=== PATIENT | female | born 1970 | race Caucasian/White ===

== ENCOUNTER 2018-07-07 15:59 | Emergency (ER) | payer OTHER ==
--- NOTE | 2018-07-07 16:20 | PDOC ---
History of Present Illness - General Chief Complaint: Injury Stated Complaint: FALL/HEAD INJURY Time Seen by Provider: 07/07/18 16:04 - History of Present Illness Initial Comments: 07/07/18 16:14 48 year old woman with past medical history of tonic clonic seizures on keppra who presents after having a witnessed seizure and hitting her head approx 1 hr ago. The patient reports that her brother saw her shaking, but she denies urinating on herself or biting her tongue. She went to [facility] ER and was waiting there for approx 1 hr so she called EMS to bring her here. En route pts blood sugar was 166 w/ stable vitals. Pt denies shortness of breath, chest pain , abdominal pain, extremity pain. She reports adherence to seizure medications. Reports that her last seizure was 2 days ago and that she has seizures every month since she was 8 years old. PMHX: as in HPI PSHX: Meds: dilantin, keppra Allergies: none Tob: none Etoh: Rec drugs: none PCP: Annette Past History - Past Medical History Allergies/Adverse Reactions: Allergies Allergy/AdvReac Type Severity Reaction Status Date / Time No Known Allergies Allergy Verified 06/20/15 08:20 Home Medications: Ambulatory Orders Levetiracetam [Keppra] 500 mg PO BID #60 tablet 06/19/15 Phenytoin Na Extended [Dilantin -] 100 mg PO TID #90 capsule 06/19/15 Seizures: Yes - Immunization History Immunization Up to Date: Yes - Suicide/Smoking/Psychosocial Hx Smoking History: Unknown if ever smoked Hx Alcohol Use: No Drug/Substance Use Hx: No Substance Use Type: None *Physical Exam - Physical Exam Comments: 07/07/18 16:20 GENERAL: Awake, alert, and fully oriented, in no acute distress HEAD: L occipital hematoma approx 3cm in diameter EYES: PERRLA, EOMI, sclera anicteric, conjunctiva clear ENT: oropharynx clear without exudates. Moist mucosa NECK: Normal ROM, supple, no lymphadenopathy, JVD, or masses LUNGS: No distress, speaks full sentences, clear to auscultation bilaterally HEART: Regular rate and rhythm, normal S1 and S2, no murmurs, rubs or gallops, peripheral pulses normal and equal bilaterally. ABDOMEN: Soft, nontender, normoactive bowel sounds. No guarding, no rebound. No masses EXTREMITIES : Normal inspection, Normal range of motion, no edema. No clubbing or cyanosis. NEUROLOGICAL: Normal speech, normal gait, no focal sensorimotor deficits SKIN: Warm, Dry, normal turgor, no rashes or lesions noted ED Treatment Course - LABORATORY CBC & Chemistry Diagram: 07/07/18 16:48 07/07/18 16:48 - RADIOLOGY Radiology Studies Ordered: Category Date Time Status HEAD CT WITHOUT CONTRAST [CT] Stat CT Scan 07/07/18 16:11 Ordered CXRPORT [CHEST X-RAY PORTABLE*] [RAD] Stat Radiology 07/07/18 16:11 Ordered Medical Decision Making - Medical Decision Making 07/07/18 16:22 48 year old woman with past medical history of tonic clonic seizures on keppra who presents after having a witnessed seizure and hitting her head approx 1 hr ago. The patient reports that her brother saw her shaking, but she denies urinating on herself or biting her tongue. DDX including but not limited to: subtherapeutic keppra vs substance vs underlying infection W/U: - head CT - cbc, cmp - levetiracetam level ED Course: Pt with stable vitals. C spine cleared by [facility] criteria 07/07/18 16:09 Pt's PCP was contacted. 07/07/18 18:14 Pt reassessed stable. desires to go home. Pt given Keppra and Dilantin. Pt. stable for discharge. Given follow up instructions and strict return precautions. Patient advised to see PCP within 1 week as she is likely subtherapeutic on antiseizure medications. Patient expressed understanding and agreed to plan. *DC/Admit/Observation/Transfer Diagnosis at time of Disposition: Seizure - Discharge Dispostion Disposition: HOME Condition at time of disposition: Stable Decision to Admit order: No - Referrals Referrals: German Ortega MD [Staff Physician] - - Patient Instructions Printed Discharge Instructions: Seizure Disorder -- Adult Additional Instructions: You were seen in the ED for complaints of seizure. In the ED you were evaluated with labwork and imaging. Your results were unremarkable. There does not appear to be an acute need for immediate hospitalization. You are advised to follow up with your primary care physician within 1 week. You were given a referral to neurology. It is advised that you follow up with your physicians for appropriate management of your seizures. Return to the ED immediately if you experience recurrent seizures, loss of consciousness, headaches, nausea, vomiting, chest pain or shortness of breath. - Post Discharge Activity
[2018-07-07 16:26] VITALS: TEMP 98.1; BMI 29.7
--- NOTE | 2018-07-07 16:36 | PDOC ---
Attending Attestation - Resident Resident Name: Etta Mars - ED Attending Attestation I have performed the following: I have examined & evaluated the patient, The case was reviewed & discussed with the resident, I agree w/resident's findings & plan, Exceptions are as noted - HPI HPI: 07/07/18 16:34 48 yo female with a long h/o epilepsy had a witnessed tonic clonic seizure -she states her last seizure was Sunday and she has frequent szs -she is alert and conversant - Physicial Exam PE: 07/07/18 17:12 Alert and conversant 48-year-old female with no gross focal neural deficits head there is a left parietal scalp abrasion eyes vandana eomi neck no cervical vertebral tenderness lungs cta b.l cvs [id number] abd soft,nontender extremites no deformities skin warn and dry neuro axox3 - Medical Decision Making 07/07/18 17:[address] head,wound care,neuro referral
[2018-07-07 16:54] LABS: BASO % 0.7 % (0-2.0); HEMATOCRIT 40.4 % (32.4-45.2); HEMOGLOBIN 13.8 GM/dL (10.7-15.3); LYMPH % 14.2 % (8-40); MCH 31.1 pg (25.7-33.7); MCHC 34.2 g/dl (32.0-36.0); MEAN CELL VOLUME 90.7 fl (80-96); MEAN PLT VOLUME 10.3 fl (7.5-11.1); MONO % 5.8 % (3.8-10.2); NEUT % 78.3 % (42.8-82.8); PLATELET COUNT 201 K/MM3 (134-434); RBC 4.45 M/mm3 (3.60-5.2); RDW 13.3 % (11.6-15.6)
[2018-07-07 17:22] LABS: ALBUMIN 3.6 g/dl (3.4-5.0); ANION GAP 10 MMOL/L (8-16); BILIRUBIN,TOTAL 0.4 mg/dL (0.2-1.0); BLOOD UREA NITROGEN 6 mg/dL (7-18); CALCIUM 9.2 mg/dL (8.5-10.1); CHLORIDE 104 mmol/L (98-107); CO2 23 mmol/L (21-32); CREATININE 0.5 mg/dL (0.55-1.02); GLUCOSE,RANDOM 109 mg/dL (74-106); SGPT/ALT 37 U/L (12-78); SODIUM 137 mmol/L (136-145); TOT PROT 7.4 g/dl (6.4-8.2)
[2018-07-07 17:23] LABS: ALK PHOS 171 U/L (45-117)
[2018-07-07 17:28] LABS: POTASSIUM 4.8 mmol/L (3.5-5.1); SGOT/AST 31 U/L (15-37)
[2018-07-07 17:39] LABS: PLATELET ESTIMATE ADEQUATE
[2018-07-07] MEDS ORDERED: levETIRAcetam 500 MG TABLET (FP) PO ONE ×2 (18:10→18:33)
[2018-07-07] MEDS ORDERED: PHENYTOIN NA EXTENDED 100 MG CAPSULE (FP) PO ONE (18:10)
[2018-07-07] MEDS ORDERED: PHENYTOIN NA EXTENDED 100 MG CAPSULE (FP) ONE (18:33)
[2018-07-07 18:43] VITALS: BP 107/76; PULSE 92
== END 2018-07-07 18:44 | disposition home or self-care (01) ==
LOC: JER 15:59
DX: G40.909 Epilepsy, unspecified, not intractable, without status epilepticus (principal); S09.8XXA Other specified injuries of head, initial encounter; S00.01XA Abrasion of scalp, initial encounter; W19.XXXA Unspecified fall, initial encounter; Y93.9 Activity, unspecified; Y92.89 Other specified places as the place of occurrence of the external cause; Y99.8 Other external cause status
CPT/HCPCS: 36415; 70450-TC; 71045-TC-FY; 80053; 85025; 99282-25

== ENCOUNTER 2019-07-02 13:25 | Emergency (ER) | payer OTHER ==
--- NOTE | 2019-07-02 13:38 | PDOC ---
Rapid Medical Evaluation Chief Complaint: Edema Time Seen by Provider: 07/02/19 13:28 Medical Evaluation: Allergies Allergy/AdvReac Type Severity Reaction Status Date / Time No Known Allergies Allergy Verified 07/02/19 13:32 Vital Signs Temp Pulse Resp BP Pulse Ox 98.1 F 87 19 114/71 96 07/02/19 13:30 07/02/19 13:30 07/02/19 13:30 07/02/19 13:30 07/02/19 13:30 07/02/19 13:34 I have performed a brief in-person evaluation of this patient. The patient presents with a chief complaint of: h/o asthma and epilepsy present with complains of 2 weeks h/o worsening LE and ankles swelling and now with redness around ankles. pt report went to [facility] 5 days ago and was told to eat ice and drink water for her symptoms Pertinent physical exam findings: moderate b/l peripheral pitting edema with increased erythema to dorsum of b/l ankles I have ordered the following: cbc, cmp, BNP, fingerstick. b/l duplex The patient will proceed to the ED for further evaluation. Discharge Disposition - Diagnosis Peripheral edema, Ankle cellulitis - Discharge Dispostion Condition at time of disposition: Stable - Referrals Referrals: Michael Bryant [Primary Care Provider] - - Patient Instructions - Post Discharge Activity
[2019-07-02 13:44] VITALS: PULSE 87; BMI 31.2
[2019-07-02] MEDS ORDERED: IBUPROFEN 600 MG TABLET (FP) PO ONE ×2 (15:46→16:04)
--- NOTE | 2019-07-02 15:57 | PDOC ---
Documentation entered by Xu Deluca SCRIBE, acting as scribe for Bethany Justin MD. Bethany Justin MD: This documentation has been prepared by the Yosi umana Daniel, SCRIBE, under my direction and personally reviewed by me in its entirety. I confirm that the documentation accurately reflects all work, treatment, procedures, and medical decision making performed by me. History of Present Illness - General Chief Complaint: Edema Stated Complaint: Edema Time Seen by Provider: 07/02/19 13:28 History Source: Patient Exam Limitations: No Limitations - History of Present Illness Initial Comments: 07/02/19 15:15 The patient is a 49 year old female with a past medical history of seizures here today for evaluation of bilateral foot pain. The patient reports that she has had 2 weeks of foot pain and denies any falls or trauma. She also endorses lower extremity edema. Patient denies headache, lightheadedness. Denies fever, chills. Denies chest pain, shortness of breath. Denies nausea, vomiting, diarrhea, abdominal pain. Allergies: NKA Social history: Denies alcohol, tobacco, and illicit drug use. Family history: seizures (aunt) PCP: Michael Bryant Past History - Past Medical History Allergies/Adverse Reactions: Allergies Allergy/AdvReac Type Severity Reaction Status Date / Time No Known Allergies Allergy Verified 07/02/19 13:32 Home Medications: Ambulatory Orders Levetiracetam [Keppra] 500 mg PO BID #60 tablet 06/19/15 Phenytoin Na Extended [Dilantin -] 100 mg PO TID #90 capsule 06/19/15 Asthma: Yes COPD: No Seizures: Yes - Immunization History Immunization Up to Date: Yes - Suicide/Smoking/Psychosocial Hx Smoking History: Current every day smoker Have you smoked in the past 12 months: No Number of Cigarettes Smoked Daily: 1 Information on smoking cessation initiated: No Hx Alcohol Use: No Drug/Substance Use Hx: No Substance Use Type: None Review of Systems - Review of Systems Able to Perform ROS?: Yes Comments:: 07/02/19 15:15 GENERAL/CONSTITUTIONAL: No fever or chills. No weakness. HEAD, EYES, EARS, NOSE AND THROAT: No change in vision. No ear pain or discharge. No sore throat. CARDIOVASCULAR: No chest pain or shortness of breath. RESPIRATORY: No cough, wheezing, or hemoptysis. GASTROINTESTINAL: No nausea, vomiting, diarrhea or constipation. GENITOURINARY: No dysuria, frequency, or change in urination. MUSCULOSKELETAL: +bilateral foot pain. +bilateral lower extremity edema. No neck or back pain. SKIN: No rash NEUROLOGIC: No headache, vertigo, loss of consciousness, or change in strength/ sensation. ENDOCRINE: No increased thirst. No abnormal weight change. HEMATOLOGIC/LYMPHATIC: No anemia, easy bleeding, or history of blood clots. ALLERGIC/IMMUNOLOGIC: No hives or skin allergy. *Physical Exam - Vital Signs Last Vital Signs Temp Pulse Resp BP Pulse Ox 98.1 F 87 19 114/71 96 07/02/19 13:30 07/02/19 13:30 07/02/19 13:30 07/02/19 13:30 07/02/19 13:30 - Physical Exam Comments: 07/02/19 15:16 GENERAL: The patient is in no acute distress. HEAD: Normal with no signs of trauma. EYES: PERRLA, EOMI, sclera anicteric, conjunctiva clear. ENT: Ears normal, nares patent, oropharynx clear without exudates. Moist mucous membranes. NECK: Normal range of motion, supple without lymphadenopathy, JVD, or masses. LUNGS: Breath sounds equal, clear to auscultation bilaterally. No wheezes, and no crackles. HEART:Regular rate and rhythm, normal S1 and S2 without murmur, rub or gallop. ABDOMEN: Soft, nontender, normoactive bowel sounds. No guarding, no rebound. No masses palpable. EXTREMITIES: +bilateral lower extremity edema and tenderness to palpation of feet. Capillary refill less than 2 seconds. +feet are warm. +red spot on top of left foot. Normal range of motion. No clubbing or cyanosis. NEUROLOGICAL: Cranial nerves II through XII grossly intact. Normal speech. No focal neurological deficits. MUSCULOSKELETAL: Back non-tender to palpation, no CVA tenderness SKIN: Warm, Dry, normal turgor, no rashes or lesions noted. ED Treatment Course - RADIOLOGY Radiology Studies Ordered: Category Date Time Status FOOT-LEFT [RAD] Stat Radiology 07/02/19 15:10 Ordered FOOT-RIGHT [RAD] Stat Radiology 07/02/19 15:10 Ordered Medical Decision Making - Medical Decision Making 07/02/19 15:42 49 yo F presenting to the ER with a complaint of bilateral lower extremity edema and foot pain Pt has had these symptoms for the past 2 weeks No direct trauma No fevers or chills No arthropod bites No erythema Pt has been walking around a lot looking for an apartment (because she lost hers ) Pain is on the plantar surface of both feet She has not taken any medication for this DD: Plantar faciitis, occult fracture, most likely dependent edema, possible DVT 07/02/19 15:46 Will do: Labs Duplex Xray Chrissie Re Assess Anticipate D/c *DC/Admit/Observation/Transfer Diagnosis at time of Disposition: Peripheral edema, Ankle cellulitis - Discharge Dispostion Condition at time of disposition: Stable - Referrals Referrals: Michael Bryant [Primary Care Provider] - - Patient Instructions - Post Discharge Activity
--- NOTE | 2019-07-02 16:57 | PDOC ---
*Physical Exam - Vital Signs Last Vital Signs Temp Pulse Resp BP Pulse Ox 98.1 F 87 19 114/71 96 07/02/19 13:30 07/02/19 13:30 07/02/19 13:30 07/02/19 13:30 07/02/19 13:30 - Physical Exam Extremity: positive: Pedal Edema (bilateral lower extremity to ankle), Swelling. negative: Calf Tenderness ED Treatment Course - LABORATORY CBC & Chemistry Diagram: 07/02/19 16:38 07/02/19 16:38 - Medications Given in the ED: ED Medications Discontinued Medications Generic Name Dose Route Start Last Admin Trade Name Marilu PRN Reason Stop Dose Admin Ibuprofen 600 mg 07/02/19 15:46 07/02/19 16:06 Motrin - PO 07/02/19 15:47 600 mg ONCE ONE Administration Medical Decision Making - Medical Decision Making 07/02/19 17:39 49yo F with PMH of epilepsy presenting to ED with bilateral foot pain x2w and pedal edema. Pt says she notices that swelling is more pronounced at the end of the day v. the beginning. No chest pain, sob, fevers, chills. non tender feet, only painful when walking. given motrin. labs wnl. pending us and xray. 07/02/19 19:54 xray does not show any acute findings doppler study negative for dvt. patient is feeling better. will dc home. will give podiatry f/u and rx for Keflex. Given return precautions. *DC/Admit/Observation/Transfer Diagnosis at time of Disposition: Peripheral edema, Ankle cellulitis - Discharge Dispostion Disposition: HOME Condition at time of disposition: Good Decision to Admit order: No - Prescriptions Prescriptions: Cephalexin Monohydrate [Keflex -] 500 mg PO Q6H #28 capsule - Referrals Referrals: Michael Bryant [Primary Care Provider] - [place] DPM [Staff Physician] - - Patient Instructions Printed Discharge Instructions: DI for Cellulitis -- Adult, DI for Peripheral Edema -- Bilateral Additional Instructions: You were seen in the emergency room today for swelling and pain. The ultrasound , xrays and blood work are all normal. You may have an infection of the skin, a prescription for Keflex was sent to your pharmacy. Take as directed. Keep your legs elevated when you are resting and wear compression stockings. The stockings can be found at any drug store. Wear comfortable shoes. You can take Tylenol or Motrin for the pain as needed. Please make an appointment with Dr. Bryant this week or early next week regarding the swelling. Come back to the emergency room for worsening redness, fever, sores in the feet , shortness of breath, chest pain or if any new concerning symptom develops. Thank you - Post Discharge Activity
[2019-07-02 16:58] LABS: EOS % 3.9 % (0-4.5); HEMATOCRIT 40.1 % (32.4-45.2); HEMOGLOBIN 13.6 GM/dL (10.7-15.3); LYMPH % 39.6 % (8-40); MCH 31.4 pg (25.7-33.7); MCHC 33.9 g/dl (32.0-36.0); MEAN CELL VOLUME 92.4 fl (80-96); MEAN PLT VOLUME 10.1 fl (7.5-11.1); MONO % 8.7 % (3.8-10.2); NEUT % 46.8 % (42.8-82.8); PLATELET COUNT 223 K/MM3 (134-434); RBC 4.34 M/mm3 (3.60-5.2); RDW 13.4 % (11.6-15.6); WHITE BLOOD COUNT 9.7 K/mm3 (4.0-10.0)
[2019-07-02 17:29] LABS: ALBUMIN 3.8 g/dl (3.4-5.0); BILIRUBIN,TOTAL 0.3 mg/dL (0.2-1); BLOOD UREA NITROGEN 6.1 mg/dL (7-18); CALCIUM 9.5 mg/dL (8.5-10.1); CREATININE 0.6 mg/dL (0.55-1.3); TOT PROT 7.5 g/dl (6.4-8.2)
[2019-07-02 20:13] VITALS: BP 117/64; TEMP 97.8
== END 2019-07-02 20:14 | disposition home or self-care (01) ==
LOC: JER 13:25
DX: L03.116 Cellulitis of left lower limb (principal); L03.115 Cellulitis of right lower limb; R60.0 Localized edema
CPT/HCPCS: 36415; 73630-TC-LT; 73630-TC-RT-FY; 80053; 82962; 83880; 85025; 93970-TC; 99283-25

== ENCOUNTER 2020-07-14 15:40 | Emergency (ER) | payer OTHER ==
[2020-07-14 16:14] VITALS: BP 109/64; PULSE 99; TEMP 98.6; BMI 29.0
--- NOTE | 2020-07-14 17:03 | PDOC ---
History of Present Illness - General Chief Complaint: Seizure Stated Complaint: SEIZURE Time Seen by Provider: 07/14/20 16:21 History Source: Patient Exam Limitations: No Limitations - History of Present Illness Initial Comments: 07/14/20 17:02 50y F with PMH of seizures presenting to the ER via EMS for witnessed seizure. Pt states she was on a walk with her friends when she had it. She states she usually gets seizures 3 days before her period starts. She takes Keppra 750mg, phenytoin and Risperdal for seizures and says she has been taking her medications as prescribed. She does not know if she fell or not but says her friends told her she fell. Per pt, she was told her seizure was brief and resolved without intervention. Denies headache, neck pain, changes in vision, n umbness/tingling, weakness, chest pain, sob, fevers/chills, back pain, abdominal pain, n/v/d, urinary symptoms. Denies smoking, alcohol or drug use. PMD: Annette Neuro: PMH: see hpi Meds: keppra, risperidone, phenytoin Allergies: nkda Social: denies Past History - Medical History Allergies/Adverse Reactions: Allergies Allergy/AdvReac Type Severity Reaction Status Date / Time No Known Allergies Allergy Verified 07/02/19 13:32 Home Medications: Ambulatory Orders Levetiracetam [Keppra] 500 mg PO BID #60 tablet 06/19/15 Phenytoin Na Extended [Dilantin -] 100 mg PO TID #90 capsule 06/19/15 Asthma: Yes COPD: No Seizures: Yes - Reproductive History Is Patient Now?: No - Immunization History Immunization Up to Date: Yes - Psycho-Social/Smoking History Smoking History: Never smoked Have you smoked in the past 12 months: No Number of Cigarettes Smoked Daily: 1 Information on smoking cessation initiated: No - Substance Abuse Hx (Audit-C & DAST Scrn) How often the patient has a drink containing alcohol: Never Score: In Men: 4 or > Positive; In Women: 3 or > Positive: 0 Screen Result (Pos requires Nsg. Audit-10AR): Negative In the last yr the pt used illegal drug/Rx for NonMed reason: No Score: Yes response is considered Positive: 0 Screen Result (Positive result requires Nsg. DAST-10): Negative *Physical Exam - Vital Signs Last Vital Signs Temp Pulse Resp BP Pulse Ox 98.6 F 99 H 20 109/64 100 07/14/20 16:05 07/14/20 16:05 07/14/20 16:05 07/14/20 16:05 07/14/20 16:05 - Physical Exam General Appearance: Yes: Nourished, Appropriately Dressed. No: Apparent Distress HEENT: positive: EOMI, DELICIA, Normal ENT Inspection, Other (no tongue lacerations) Neck: positive: Trachea midline, Supple Respiratory/Chest: positive: Lungs Clear, Normal Breath Sounds. negative: Crackles, Rales, Rhonchi, Stridor, Wheezing Cardiovascular: positive: Regular Rhythm, Regular Rate, S1, S2. negative: Edema, JVD, Murmur Vascular Pulses: Dorsalis-Pedis (R): 2+, Doralis-Pedis (L): 2+ Gastrointestinal/Abdominal: positive: Normal Bowel Sounds, Soft. negative: Tender Musculoskeletal: positive: Normal Inspection. negative: CVA Tenderness, Decreased Range of Motion Extremity: positive: Normal Capillary Refill, Normal Inspection. negative: Swelling, Calf Tenderness, Erythema Integumentary: positive: Normal Color, Dry, Warm Neurologic: positive: administrative associate II-XII NML intact, Fully Oriented, Alert, Normal Mood/Affect, Normal Response, Motor Strength 5/5 Medical Decision Making - Medical Decision Making 07/14/20 18:36 50y F with pmh of seizures presenting to the ER for break through seizures. seizure was witnessed by her friends, was brief and resolved without intervention. It is typical for patient to get seizures 3 days before her period starts per pt. No complaints at this time. PE: neurologically intact, small abrasion to L elbow otherwise no external signs of trauma. will check glucose, head and cspine ct due to fall and will check urine, upreg -observe pt brought medications with her; stated she took her AM and noon doses, will take her evening doses. no seizures while in ER. bgm wnl. ua negative for infection, not . pending CT but likely will dc home with neurology f/u as pt states she does not see a neurologist. will give referral. hemodynamically stable, neurologically intact, will discharge home. return precautions provided. CT read pending sign out to Dr. Hseih Discharge - Discharge Information Problems reviewed: Yes Clinical Impression/Diagnosis: Seizure Condition: Good Disposition: HOME - Admission No - Follow up/Referral Referrals: Michael Bryant [Primary Care Provider] - Channing Bernabe MD [Staff Physician] - - Patient Discharge Instructions Patient Printed Discharge Instructions: DI for Seizure Disorder -- Adult Additional Instructions: You were seen in the ER today for a seizure episode. Due to the fall we got a CT scan of your head and your neck which is normal. Continue taking your medications as directed. Stay well hydrated. I recommend following up with a neurologist. The referral is provided below. Come back to the ER if you have worsening headaches, changes in vision, you pass out, or if any new or concerning symptom develops. Thank you - Post Discharge Activity
--- NOTE | 2020-07-14 17:53 | PDOC ---
Documentation entered by John Johnson SCRIBE, acting as scribe for Emma Nicholson DO. Emma Nicholson DO: This documentation has been prepared by the Alex umana Angel, SCRIBE, under my direction and personally reviewed by me in its entirety. I confirm that the documentation accurately reflects all work, treatment, procedures, and medical decision making performed by me. Attending Attestation - Resident Resident Name: KarimeBillie - ED Attending Attestation I have performed the following: I have examined & evaluated the patient, The case was reviewed & discussed with the resident, I agree w/resident's findings & plan, Exceptions are as noted - HPI HPI: 07/14/20 18:21 The patient is a 50 year old female with a significant past medical history of epilepsy who presents to the ED BIBA s/p witnessed seizure. The patient states she was on a walk with her friends when the seizure happened. She was told by her friends that she did fall. The patient is compliant with all her prescribed medications (Keppra 750mg, Phenytoin and Risperdal). The patient notes having one seizure a month which is managed by at [facility]. The patient denies headaches, neck pain, N/V/D, SOB, fever/chills, changes in vision or any weakness. - Physicial Exam PE: 07/14/20 17:49 Gen: aaox3, nad heent: EOMI, PERRL, MMM neck: supple, no midline ttp, heart: +s1s2 reg lungs: cta b/l abd: soft, nt/nd +bs ext: no c/c/e neuro: cn ii-xii grossly intact, no focal deficits, muscle strength and sensation intact - Medical Decision Making 07/14/20 17:52 a/p: 50yo female with a witness seizure today -pt is compliant with epilepsy meds -states she has 1 seizure a month associated with her menstrual cycle -pt currently at baseline and will take her own nighttime meds at 6p -blood glu 100 -ua pending -head ct and ct c spine pending -will monitor and reassess 07/14/20 19:[address] c spine neg other than thyroid nodule, will need outpt follow up pt has been seizure free while in the ER Discharge - Discharge Information Problems reviewed: Yes Clinical Impression/Diagnosis: Seizure, Thyroid nodule Condition: Stable Disposition: HOME - Admission No - Follow up/Referral Referrals: Channing Bernabe MD [Staff Physician] - Michael Bryant [Primary Care Provider] - Fritz Macias MD [Staff Physician] - - Patient Discharge Instructions Patient Printed Discharge Instructions: DI for Seizure Disorder -- Adult, DI for Thyroid Nodule Additional Instructions: You were seen in the ER today for a seizure episode. Due to the fall we got a CT scan of your head and your neck which is normal. Continue taking your medications as directed. Stay well hydrated. I recommend following up with a neurologist. The referral is provided below. Come back to the ER if you have worsening headaches, changes in vision, you pass out, or if any new or concerning symptom develops. You had an incidental finding of a thyroid nodule on your CT. Please follow up with your PMD for further evaluation of this. You may need an outpatient ultrasound of the thyroid. Thank you - Post Discharge Activity
[2020-07-14 18:07] LABS: PH,URINE 5.5 (5.0-8.0); URINE APPEARANCE CLOUDY; URINE BILIRUBIN NEGATIVE (NEGATIVE); URINE COLOR YELLOW; URINE GLUCOSE (UA) NEGATIVE (NEGATIVE); URINE KETONE NEGATIVE (NEGATIVE); URINE LEUK ESTERASE NEGATIVE (NEGATIVE); URINE NITRITE NEGATIVE (NEGATIVE); URINE PROTEIN NEGATIVE (NEGATIVE); URINE UROBILINOGEN 0.2 mg/dL (0.2-1.0)
[2020-07-14 18:10] LABS: HCG,QUALITATIVE URINE Negative
--- NOTE | 2020-07-14 19:51 | PDOC ---
*Physical Exam - Vital Signs Last Vital Signs Temp Pulse Resp BP Pulse Ox 98.6 F 99 H 20 109/64 100 07/14/20 16:05 07/14/20 16:05 07/14/20 16:05 07/14/20 16:05 07/14/20 16:05 ED Treatment Course - ADDITIONAL ORDERS Additional order review: Laboratory Results 07/14/20 07/14/20 17:36 17:32 POC Glucometer 100 Urine Color Yellow Urine Appearance Cloudy Urine pH 5.5 Ur Specific Mchenry 1.017 Urine Protein Negative Urine Glucose (UA) Negative Urine Ketones Negative Urine Blood Negative Urine Nitrite Negative Urine Bilirubin Negative Urine Urobilinogen 0.2 Ur Leukocyte Esterase Negative Urine HCG, Qual Negative 07/14/20 17:32 POC Glucometer 100 Medical Decision Making - Medical Decision Making 07/14/20 19:51 50y F with pmh of seizures presenting to the ER for break through seizures. No seizures witnessed in ED. Head/c-spine CT neg bleed/fx/infarct/mass, incidental thyroid nodule DC home w neuro referral, PCP f/u for thyroid nodule Discharge - Discharge Information Problems reviewed: Yes Clinical Impression/Diagnosis: Seizure, Thyroid nodule Condition: Stable Disposition: HOME - Follow up/Referral Referrals: Michael Bryant [Primary Care Provider] - Fritz Macias MD [Staff Physician] - German Ortega MD [Staff Physician] - - Patient Discharge Instructions Patient Printed Discharge Instructions: DI for Seizure Disorder -- Adult, DI for Thyroid Nodule Additional Instructions: You were seen in the ER today for a seizure episode. Due to the fall we got a CT scan of your head and your neck which is normal. Continue taking your medications as directed. Stay well hydrated. Please follow up with the referred neurologist Dr Ortega within the next week. Come back to the ER if you have worsening headaches, changes in vision, you pass out, or if any new or concerning symptom develops. You had an incidental finding of a thyroid nodule on your CT. Please follow up with your PMD for further evaluation of this. You may need an outpatient ultrasound of the thyroid. Thank you - Post Discharge Activity
== END 2020-07-14 20:09 | disposition home or self-care (01) ==
LOC: JER 15:40
DX: G40.89 Other seizures (principal); E04.1 Nontoxic single thyroid nodule
CPT/HCPCS: 70450-TC; 72125-TC; 81003; 82962; 84703; 99285-25

== ENCOUNTER 2020-07-16 17:39 | Emergency (ER) | payer OTHER ==
[2020-07-16 18:36] VITALS: BMI 29.0
--- NOTE | 2020-07-16 20:15 | PDOC ---
History of Present Illness - General Chief Complaint: Seizure Stated Complaint: SEIZURE Time Seen by Provider: 07/16/20 19:45 History Source: Patient Exam Limitations: No Limitations - History of Present Illness Initial Comments: 07/16/20 20:09 PMD: Annette Neuro: "Lona lyndon [facility]" HPI: 50y F with PMH of jose-menstrual seizures presenting to the ER via EMS for witnessed seizure. Pt states she was with her friends when she had her typical seizure (brief, with short post-ictal period), she denies any complaint at present and says that her friends reported to her that she did not hit her head. She states she usually gets seizures 3 days before her period starts and has multiple during this period each month. She takes Keppra 750 mg, phenytoin and Risperdal and says she has been taking her medications as prescribed - she reports seeing her neurologist "[facility]" today who did not change her medications. Denies headache, neck pain, changes in vision, numbness/tingling, weakness, chest pain, sob, fevers/chills, back pain, abdominal pain, n/v/d, urinary symptoms. Denies smoking, alcohol or drug use, no history of diabetes or blood sugar problems. PMH: Ave above [facility]: Per chart Meds: Keppra 750 mg, Risperidone, Phenytoin Allergies: NKDA Social: Denies ETOH, smoking, illicits Past History - Travel History Traveled outside of the country in the last 30 days: No Close contact w/someone who was outside of country & ill: No - Medical History Allergies/Adverse Reactions: Allergies Allergy/AdvReac Type Severity Reaction Status Date / Time No Known Allergies Allergy Verified 07/02/19 13:32 Home Medications: Ambulatory Orders Levetiracetam [Keppra] 500 mg PO BID #60 tablet 06/19/15 Phenytoin Na Extended [Dilantin -] 100 mg PO TID #90 capsule 06/19/15 Asthma: Yes COPD: No Seizures: Yes - Reproductive History Is Patient Now?: No - Immunization History Immunization Up to Date: Yes - Psycho-Social/Smoking History Smoking History: Former smoker Have you smoked in the past 12 months: No Number of Cigarettes Smoked Daily: 1 Information on smoking cessation initiated: No Review of Systems - Review of Systems Able to Perform ROS?: Yes Is the patient limited [place] proficient: Yes Constitutional: No: Chills, Fever, Weakness HEENTM: No: Recent change in vision, Nose Congestion, Throat Pain Respiratory: No: Cough, Shortness of Breath, Wheezing Cardiac (ROS): No: Chest Pain, Lightheadedness, Palpitations, Syncope, Chest Tightness ABD/GI: No: Constipated, Diarrhea, Nausea, Vomiting : No: Burning, Dysuria, Frequency Musculoskeletal: No: Back Pain, Muscle Pain, Muscle Weakness, Neck Pain Integumentary: No: Bruising, Pruritus, Rash Neurological: No: Headache, Numbness, Tingling, Weakness Psychiatric: No: Anxiety, Depression, Change in Appetite Endocrine: No: Increased Thirst, Increased Urine Hematologic/Lymphatic: No: Anemia, Blood Clots, Easy Bleeding All Other Systems: Reviewed and Negative *Physical Exam - Vital Signs Last Vital Signs Temp Pulse Resp BP Pulse Ox 98 F 79 20 146/88 98 07/16/20 17:46 07/16/20 17:46 07/16/20 17:46 07/16/20 17:46 07/16/20 17:46 - Physical Exam 07/16/20 20:17 Vitals reviewed, AFVSS GEN: Well appearing, appears stated age, NAD, comfortable. AAOx3. HEENT: NCAT, EOMI, PERRL. Sclera anicteric, noninjected. No facial asymmetry. Moist mucous membranes. Normal voice. Trachea midline. CV: RRR, S1/S2, no murmurs / rubs / gallops appreciated. LUNG: CTABL, normal work of breathing. No wheezes, rales, rhonchi. No cough. Speaking full sentences. GI: Soft, NTND, +BS, no guarding, no rebound. No masses. EXTREMITIES: 2+ distal pulses. No clubbing / cyanosis / edema. No gross deformity in any extremity. SKIN: Warm, dry, no rashes appreciated, non-jaundiced. PSYCH: Normal mood and affect. Cooperative and appropriate. NEURO: Strength 5+ biceps, triceps, intrinsic hand muscles, hip flexors / extensors / foot dorsiflexion / plantarflexion Sensation normal throughout to light touch Reflexes not assessed Romberg negative Kmddsy-rjau-exekfb and heel-zarate normal (+No dysmetria) Rapid alternating movements normal (No dysdiadokinesis) Pronator drift not assessed Gait normal Cranial nerves: CN 1: Not assessed CN 2: Normal visual odom and acuity CN 3/4/6: EOMI CN 5: Normal facial sensation CN 7: Normal facial movement CN 8: Symmetric hearing soft sounds CN 9: Uvula midline and normal articulation CN 10: Uvula midline and normal articulation CN 11: Normal shrug / head turn strength CN 12: Normal tongue movement A&Ox3, normal remote and recent recall. Medical Decision Making - Medical Decision Making 07/16/20 20:15 50y F with PMH of jose-menstrual seizures presenting to the ER via EMS for witnessed seizure. Patient reports history of seizures since 8yo, reports following up with an outside neurologist, denies any symptoms at present. Exam notable for normal neuro exam in the department with normal gait, normal vitals, well-appearing, stained shirt from spilled coffee during seizure. Concerning for breakthrough seizures despite reported medication compliance, ?neuro follow up. Patient is not concerned, requesting to leave for food, states that her menses started in the department so she does not anticipate further seizures and would like to be cleared to go. - BGM Dispo: Follow up with referred Neurologist 07/16/20 20:41 BG 88 Neuro is Lona Barrios NP according to the patient 07/16/20 21:25 Patient does not want labs done, states they were recently drawn with Dr. Bryant Dispo: Home Discharge - Discharge Information Problems reviewed: Yes Clinical Impression/Diagnosis: Seizure Condition: Stable Disposition: HOME - Admission No - Follow up/Referral Referrals: Michael Bryant [Primary Care Provider] - German Ortega MD [Staff Physician] - - Patient Discharge Instructions Patient Printed Discharge Instructions: DI for Seizure Disorder -- Adult Additional Instructions: You were seen in the ER today for a seizure episode. Continue taking your medications as directed. Stay well hydrated. Please follow up with the referred neurologist Dr Ortega within the next week. Come back to the ER if you have worsening headaches, changes in vision, you pass out, or if any new or concerning symptom develops. - Post Discharge Activity
--- NOTE | 2020-07-16 21:36 | PDOC ---
Documentation entered by Chepe Hope SCRIBE, acting as scribe for Dustin Lares MD. Dustin Lares MD: This documentation has been prepared by the scribe, Chepe Hope SCRIBE, under my direction and personally reviewed by me in its entirety. I confirm that the documentation accurately reflects all work, treatment, procedures, and medical decision making performed by me. Attending Attestation - Resident Resident Name: Roverto Lee - ED Attending Attestation I have performed the following: I have examined & evaluated the patient, The case was reviewed & discussed with the resident, I agree w/resident's findings & plan, Exceptions are as noted - HPI HPI: 07/16/20 20:34 The patient is a 50 year old female with a significant past medical history of epilepsy (Keppra 750mg, Phenytoin and Risperdal) who presents to the emergency department, for evaluation of a witnessed seizure today. The patient reports that friends who witnessed the episode noted she did not hit her headWith a reported postictal.. Patient denied any tongue biting or urinary incontinence. States that this is her pattern for seizures. States that she went to her primary care doctor today who and had some blood work performed. Patient currently feels fine denies any headache, neck pain, chest pain, back pain, abdominal pain, nausea, vomiting, vision changes, focal numbness, tingling, weakness. He she denies any other symptoms including fevers, chills, diarrhea, dysuria, cough. Patient was seen in the ED 2 days ago and had a CTA was negative. - Physicial Exam PE: 07/16/20 19:54 GENERAL: The patient is awake, alert, and fully oriented, Nontoxic - in no acute distress. HEAD: Normocephalic, atraumatic. EYES: extraocular movements intact, sclera anicteric, conjunctiva clear. ENT: Normal voice, Moist mucous membranes. NECK: Normal range of motion, supple without lymphadenopathy, JVD, or masses. LUNGS: Breath sounds equal, clear to auscultation bilaterally. No wheezes, no crackles, no rales. HEART: Regular rate and rhythm, normal S1 and S2 without murmur, rub or gallop. ABDOMEN: Soft, nontender, normoactive bowel sounds. No guarding, no rebound. No masses. EXTREMITIES: Normal range of motion, no edema. No clubbing or cyanosis. No cords, erythema, or tenderness. NEUROLOGICAL: No facial asymmetry, Normal speech, normal gait.Moving all 4 extremity spontaneously symmetrically PSYCH: Normal mood, normal affect. SKIN: Warm, Dry, normal turgor, no rashes or lesions noted. - Medical Decision Making 07/16/20 21:32 As the patient had blood work performed at her doctor's office she declines blood work at this time. Will discharge the patient to follow-up with neurology and PMD Return precautions were discussed Heart Score/ECG Review - ECG Impressions Comment:: 07/16/20 22:10 Twelve-lead EKG was performed and reviewed by me. There is normal sinus rhythm with a normal rate. Rate of 75 The axis is normal. The intervals are normal. There is normal R wave progression There are no ST or T wave abnormalities. Impression: Normal twelve-lead EKG Discharge - Discharge Information Problems reviewed: Yes Clinical Impression/Diagnosis: Seizure Condition: Stable Disposition: HOME - Admission No - Follow up/Referral Referrals: German Ortega MD [Staff Physician] - Michael Bryant [Primary Care Provider] - - Patient Discharge Instructions Patient Printed Discharge Instructions: DI for Seizure Disorder -- Adult Additional Instructions: You were seen in the ER today for a seizure episode. Continue taking your medications as directed. Stay well hydrated. Please follow up with the referred neurologist Dr Ortega within the next week. Come back to the ER if you have worsening headaches, changes in vision, you pass out, or if any new or concerning symptom develops. - Post Discharge Activity
[2020-07-16 22:02] VITALS: BP 145/80; PULSE 80; TEMP 98.6
--- NOTE | 2020-07-17 14:58 | EKG ---
Test Reason : Blood Pressure : / mmHG Vent. Rate : 075 BPM Atrial Rate : 075 BPM P-R Int : 126 ms QRS Dur : 086 ms QT Int : 384 ms P-R-T Axes : 060 049 056 degrees QTc Int : 428 ms NORMAL SINUS RHYTHM WITH SINUS ARRHYTHMIA NORMAL ECG NO PREVIOUS ECGS AVAILABLE Confirmed by Benito Gonzalez ([id number]) on 07/17/2020 2:57:40 PM Referred By: Confirmed By:Benito Gonzalez
== END 2020-07-16 22:02 | disposition home or self-care (01) ==
LOC: JER 17:39
DX: G40.89 Other seizures (principal)
CPT/HCPCS: 82962; 93005; 93010; 99284-25

== ENCOUNTER 2020-12-15 12:38 | Emergency (ER) | payer OTHER ==
[2020-12-15 13:19] VITALS: BP 102/75; PULSE 83; TEMP 98.4; BMI 26.2
[2020-12-15 14:50] LABS: BASO % 0.7 % (0-2.0); EOS % 2.8 % (0-4.5); HEMATOCRIT 37.9 % (32.4-45.2); HEMOGLOBIN 12.9 GM/dL (10.7-15.3); LYMPH % 24.3 % (8-40); MCH 30.4 pg (25.7-33.7); MCHC 34.1 g/dl (32.0-36.0); MEAN CELL VOLUME 89.2 fl (80-96); MEAN PLT VOLUME 10.7 fl (7.5-11.1); MONO % 6.7 % (3.8-10.2); NEUT % 65.5 % (42.8-82.8); PLATELET COUNT 184 K/MM3 (134-434); RBC 4.24 M/mm3 (3.60-5.2); RDW 13.2 % (11.6-15.6); WHITE BLOOD COUNT 10.9 K/mm3 (4.0-10.0)
[2020-12-15 15:54] LABS: POTASSIUM 4.7 mmol/L (3.5-5.1)
[2020-12-15 15:56] LABS: ALBUMIN 3.5 g/dl (3.4-5.0); BLOOD UREA NITROGEN 6.8 mg/dL (7-18); CALCIUM 9.2 mg/dL (8.5-10.1)
[2020-12-15 16:01] LABS: BILIRUBIN,TOTAL 0.3 mg/dL (0.2-1); CREATININE 0.6 mg/dL (0.55-1.3); TOT PROT 6.5 g/dl (6.4-8.2)
== END 2020-12-15 15:00 | disposition left against medical advice (07) ==
LOC: JER 12:38
DX: G40.89 Other seizures (principal)
CPT/HCPCS: 36415; 80053; 80177; 80185; 82962; 85025; 99284-25

== ENCOUNTER 2021-05-20 11:47 | Emergency (ER) | payer OTHER ==
[2021-05-20 11:58] VITALS: BMI 26.3
[2021-05-20 13:22] LABS: BASO % 0.6 % (0-2.0); EOS % 3.5 % (0-4.5); HEMATOCRIT 38.7 % (32.4-45.2); HEMOGLOBIN 12.7 GM/dL (10.7-15.3); LYMPH % 24.1 % (8-40); MCH 29.7 pg (25.7-33.7); MCHC 32.8 g/dl (32.0-36.0); MEAN CELL VOLUME 90.6 fl (80-96); MONO % 9.5 % (3.8-10.2); NEUT % 62.3 % (42.8-82.8); PLATELET COUNT 196 10^3/uL (134-434); RBC 4.27 M/mm3 (3.60-5.2); RDW 13.5 % (11.6-15.6); WHITE BLOOD COUNT 11.4 K/mm3 (4.0-10.0)
[2021-05-20 13:32] LABS: CHLORIDE 106 mmol/L (98-107); SODIUM 139 mmol/L (136-145)
[2021-05-20 13:36] LABS: CALCIUM 8.6 mg/dL (8.5-10.1)
[2021-05-20 13:37] LABS: ALBUMIN 3.2 g/dl (3.4-5.0); ANION GAP 4 MMOL/L (8-16); BLOOD UREA NITROGEN 12.7 mg/dL (7-18); CO2 29 mmol/L (21-32); GLUCOSE,RANDOM 91 mg/dL (74-106)
[2021-05-20 13:40] LABS: CREATININE 0.5 mg/dL (0.55-1.3); SGOT/AST 22 U/L (15-37); SGPT/ALT 41 U/L (13-61)
[2021-05-20 13:42] LABS: BILIRUBIN,TOTAL 0.2 mg/dL (0.2-1); TOT PROT 6.2 g/dl (6.4-8.2)
[2021-05-20 13:43] LABS: ALK PHOS 144 U/L (45-117)
[2021-05-20] MEDS ORDERED: levETIRAcetam 500 MG/5 ML INJECTION VIAL IVPB ONE ×2 (16:44→16:49)
[2021-05-20 17:08] LABS: EPI CELLS 22 /uL (0-25.1); HYALINE CASTS 1 /uL (0-3.1); PH,URINE 5.5 (5.0-8.0); URINE APPEARANCE CLEAR; URINE BACTERIA 327 /uL (0-1359); URINE BILIRUBIN NEGATIVE (NEGATIVE); URINE COLOR YELLOW; URINE GLUCOSE (UA) NEGATIVE (NEGATIVE); URINE KETONE NEGATIVE (NEGATIVE); URINE LEUK ESTERASE NEGATIVE (NEGATIVE); URINE NITRITE NEGATIVE (NEGATIVE); URINE PROTEIN NEGATIVE (NEGATIVE); URINE RBC 23 /uL (0-23.9); URINE UROBILINOGEN 0.2 mg/dL (0.2-1.0); URINE WBC 47 /uL (0-25.8)
[2021-05-20 18:24] VITALS: BP 134/78; PULSE 84; TEMP 97.9
== END 2021-05-20 18:24 | disposition home or self-care (01) ==
LOC: JER 11:47
PROC: 3E033GC Introduction of Other Therapeutic Substance into Peripheral Vein, Percutaneous Approach (ICD-10-PCS; principal; 2021-05-20)
DX: G40.89 Other seizures (principal)
CPT/HCPCS: 36415; 70450-TC; 71045-TC-FY; 72125-TC; 80053; 80177; 80185; 81003; 82550; 82962; 84484; 84703; 85025; 87086; 93005; 93010; 99284-25

== ENCOUNTER 2021-05-21 14:57 | Emergency (ER) | payer OTHER ==
[2021-05-21 15:09] VITALS: BMI 26.3
[2021-05-21] MEDS ORDERED: LACTATED RINGERS SOLUTION 1000 ML INFUS.BAG IV ONE (15:47)
[2021-05-21] MEDS ORDERED: levETIRAcetam 500 MG TABLET (FP) PO ONE ×2 (16:55→17:41)
[2021-05-21 17:40] LABS: EPI CELLS 18 /uL (0-25.1); HYALINE CASTS 1 /uL (0-3.1); PH,URINE 5.5 (5.0-8.0); URINE APPEARANCE CLEAR; URINE BACTERIA 250 /uL (0-1359); URINE BILIRUBIN NEGATIVE (NEGATIVE); URINE COLOR YELLOW; URINE GLUCOSE (UA) NEGATIVE (NEGATIVE); URINE KETONE NEGATIVE (NEGATIVE); URINE LEUK ESTERASE TRACE (NEGATIVE); URINE NITRITE NEGATIVE (NEGATIVE); URINE PROTEIN NEGATIVE (NEGATIVE); URINE WBC 35 /uL (0-25.8)
[2021-05-21 18:06] VITALS: BP 126/74; PULSE 74; TEMP 98.6
[2021-05-21 20:54] LABS: URINE RBC 30.1 /uL (0-23.9)
== END 2021-05-21 18:08 | disposition home or self-care (01) ==
LOC: JER 14:57
DX: R56.9 Unspecified convulsions (principal)
CPT/HCPCS: 81003; 87086; 93005; 93010; 99284-25

== ENCOUNTER 2021-06-12 12:05 | Emergency (ER) | payer OTHER ==
[2021-06-12 12:11] VITALS: BP 130/80; PULSE 78; TEMP 97; BMI 26.2
[2021-06-12] MEDS ORDERED: PHENYTOIN NA EXTENDED 100 MG CAPSULE (FP) ONE (13:20)
[2021-06-12] MEDS ORDERED: levETIRAcetam 500 MG TABLET (FP) PO ONE ×2 (13:21→13:23)
[2021-06-12] MEDS ORDERED: PHENYTOIN NA EXTENDED 100 MG CAPSULE (FP) PO ONE (13:23)
[2021-06-13] MEDS ORDERED: levETIRAcetam 500 MG TABLET (FP) PO ONE (13:14)
[2021-06-13] MEDS ORDERED: PHENYTOIN NA EXTENDED 100 MG CAPSULE (FP) PO ONE (13:14)
== END 2021-06-12 13:55 | disposition home or self-care (01) ==
LOC: JER 12:05 → JERFT 12:05
DX: G40.89 Other seizures (principal); Z76.0 Encounter for issue of repeat prescription
CPT/HCPCS: 99283-25

== ENCOUNTER 2022-08-19 21:43 | Emergency (ER) | payer OTHER ==
[2022-08-19 22:03] VITALS: TEMP 99; BMI 22.6
[2022-08-19] MEDS ORDERED: levETIRAcetam 500 MG TABLET (FP) PO ONE ×2 (22:37→22:45)
[2022-08-19 22:52] LABS: EPI CELLS >36 /uL (0-25.1); HYALINE CASTS 0 /uL (0-3.1); URINE APPEARANCE CLOUDY; URINE BACTERIA 946 /uL (0-1359); URINE BILIRUBIN NEGATIVE (NEGATIVE); URINE COLOR YELLOW; URINE GLUCOSE (UA) NEGATIVE (NEGATIVE); URINE KETONE NEGATIVE (NEGATIVE); URINE LEUK ESTERASE TRACE (NEGATIVE); URINE NITRITE NEGATIVE (NEGATIVE); URINE PROTEIN NEGATIVE (NEGATIVE); URINE RBC 40 /uL (0-23.9); URINE WBC 40 /uL (0-25.8)
[2022-08-19 23:24] LABS: BASO % 0.7 % (0-2.0); EOS % 1.6 % (0-4.5); HEMATOCRIT 41.4 % (32.4-45.2); HEMOGLOBIN 13.6 GM/dL (10.7-15.3); LYMPH % 19.4 % (8-40); MCH 29.3 pg (25.7-33.7); MCHC 32.9 g/dl (32.0-36.0); MEAN CELL VOLUME 89.1 fl (80-96); MONO % 7.3 % (3.8-10.2); PLATELET COUNT 338 10^3/uL (134-434); RBC 4.64 M/mm3 (3.60-5.2); RDW 12.8 % (11.6-15.6); WHITE BLOOD COUNT 14.7 K/mm3 (4.0-10.0)
[2022-08-19 23:35] LABS: CHLORIDE 101 mmol/L (98-107); SODIUM 141 mmol/L (136-145)
[2022-08-19 23:38] LABS: ALBUMIN 3.1 g/dl (3.4-5.0); ANION GAP 6 MMOL/L (8-16); CALCIUM 9.1 mg/dL (8.5-10.1); CO2 33 mmol/L (21-32); GLUCOSE,RANDOM 107 mg/dL (74-106)
[2022-08-19 23:41] LABS: CREATININE 0.5 mg/dL (0.55-1.3); SGOT/AST 25 U/L (15-37); SGPT/ALT 37 U/L (13-61)
[2022-08-19 23:43] LABS: BILIRUBIN,TOTAL 0.1 mg/dL (0.2-1); PHOSPHOROUS 3.1 mg/dL (2.5-4.9); TOT PROT 6.9 g/dl (6.4-8.2)
[2022-08-19 23:44] LABS: ALK PHOS 166 U/L (45-117)
[2022-08-20 01:47] VITALS: BP 132/94; PULSE 69; RESP 16
== END 2022-08-20 06:55 | disposition home or self-care (01) ==
LOC: JER 21:43
DX: G40.89 Other seizures (principal)
CPT/HCPCS: 0241U-QW; 36415; 70450-TC; 71045-TC-FY; 72125-TC; 80053; 80177; 80185; 80307; 81003; 83735; 84100; 85025; 87086; 93005; 93010; 99285-25

== ENCOUNTER 2022-10-16 22:16 | Observation (INO) | payer OTHER ==
[2022-10-17 01:46] LABS: BASO % 1.1 % (0-2.0); EOS % 5.7 % (0-4.5); HEMATOCRIT 39.8 % (32.4-45.2); HEMOGLOBIN 13.5 GM/dL (10.7-15.3); MCH 30.4 pg (25.7-33.7); MCHC 33.8 g/dl (32.0-36.0); MEAN CELL VOLUME 89.7 fl (80-96); MEAN PLT VOLUME 10.1 fl (7.5-11.1); MONO % 6.1 % (3.8-10.2); NEUT % 51.1 % (42.8-82.8); PLATELET COUNT 240 10^3/uL (134-434); RBC 4.43 M/mm3 (3.60-5.2); RDW 13.8 % (11.6-15.6); WHITE BLOOD COUNT 12.5 K/mm3 (4.0-10.0)
[2022-10-17 02:09] LABS: ALBUMIN 3.9 g/dl (3.4-5.0); BLOOD UREA NITROGEN 8.1 mg/dL (7-18)
[2022-10-17 02:12] LABS: CREATININE 0.6 mg/dL (0.55-1.3)
[2022-10-17 02:14] LABS: BILIRUBIN,TOTAL 0.4 mg/dL (0.2-1); TOT PROT 7.7 g/dl (6.4-8.2)
[2022-10-17 02:32] LABS: EPI CELLS >36 /uL (0-25.1); HYALINE CASTS 0 /uL (0-3.1); URINE APPEARANCE CLEAR; URINE BACTERIA 838 /uL (0-1359); URINE BILIRUBIN NEGATIVE (NEGATIVE); URINE COLOR YELLOW; URINE GLUCOSE (UA) NEGATIVE (NEGATIVE); URINE KETONE NEGATIVE (NEGATIVE); URINE LEUK ESTERASE TRACE (NEGATIVE); URINE NITRITE NEGATIVE (NEGATIVE); URINE PROTEIN NEGATIVE (NEGATIVE); URINE RBC 6 /uL (0-23.9); URINE UROBILINOGEN 0.2 mg/dL (0.2-1.0); URINE WBC 42 /uL (0-25.8)
[2022-10-17] MEDS ORDERED: FOSPHENYTOIN SODIUM 1,000 MG in SODIUM CHLORIDE 100 ML IVPB ONE (02:53)
[2022-10-17] MEDS ORDERED: levETIRAcetam 500 MG/5 ML INJECTION VIAL IVPB ONE ×2 (05:52→06:25)
[2022-10-17] MEDS ORDERED: ENOXAPARIN NA (PORCINE) 40 MG/0.4 ML DISP.SYRIN SQ ONE (09:39)
[2022-10-17] MEDS: ENOXAPARIN NA (PORCINE) 40 MG/0.4 ML DISP.SYRIN SQ SCH (09:44)
[2022-10-17 10:26] LABS: BASO % 0.7 % (0-2.0); EOS % 5.9 % (0-4.5); HEMATOCRIT 38.6 % (32.4-45.2); LYMPH % 31.1 % (8-40); MCH 30.6 pg (25.7-33.7); MCHC 33.7 g/dl (32.0-36.0); MEAN CELL VOLUME 90.8 fl (80-96); MEAN PLT VOLUME 10.5 fl (7.5-11.1); NEUT % 55.3 % (42.8-82.8); PLATELET COUNT 219 10^3/uL (134-434); RBC 4.26 M/mm3 (3.60-5.2); RDW 14.2 % (11.6-15.6)
[2022-10-17 10:46] LABS: ALBUMIN 3.4 g/dl (3.4-5.0); BLOOD UREA NITROGEN 7.6 mg/dL (7-18); CALCIUM 9.2 mg/dL (8.5-10.1)
[2022-10-17 10:49] LABS: CREATININE 0.6 mg/dL (0.55-1.3); PHOSPHOROUS 4.2 mg/dL (2.5-4.9)
[2022-10-17 10:51] LABS: BILIRUBIN,TOTAL 0.4 mg/dL (0.2-1)
[2022-10-17 21:02] VITALS: BMI 21.7
[2022-10-18 05:56] VITALS: BP 113/50; PULSE 66; RESP 18; TEMP 98.7
[2022-10-18] MEDS ORDERED: ACETAMINOPHEN 325 MG TABLET (FP) PO PRN (09:20)
[2022-10-18] MEDS: ENOXAPARIN NA (PORCINE) 40 MG/0.4 ML DISP.SYRIN SQ SCH (10:29)
== END 2022-10-18 11:11 | disposition home or self-care (01) ==
LOC: JER 22:16 → JERBED 10-17 02:53 → J4W 10-17 20:02
PROVIDERS: ADMIT Internal Medicine
PROC: 3E033GC Introduction of Other Therapeutic Substance into Peripheral Vein, Percutaneous Approach (ICD-10-PCS; principal; 2022-10-17)
DX: G40.909 Epilepsy, unspecified, not intractable, without status epilepticus (principal); R55 Syncope and collapse; J45.909 Unspecified asthma, uncomplicated; F17.210 Nicotine dependence, cigarettes, uncomplicated
CPT/HCPCS: 0241U-QW; 36415; 70450-TC; 71045-TC-FY; 72125-TC; 80053; 80177; 80185; 81003; 82550; 83605; 83735; 84100; 84484; 85025; 93005; 93010; 96365; 96375; 99285-25; C9803-CS; G0378; U0003; U0005

== ENCOUNTER 2022-10-31 13:50 | Emergency (ER) | payer OTHER ==
[2022-10-31 14:45] VITALS: BP 117/57; PULSE 79; RESP 20; TEMP 97.9; BMI 22.7
[2022-10-31 16:53] LABS: EPI CELLS >36 /uL (0-25.1); HYALINE CASTS 2 /uL (0-3.1); PH,URINE 5.5 (5.0-8.0); URINE APPEARANCE CLOUDY; URINE BACTERIA 442 /uL (0-1359); URINE BILIRUBIN NEGATIVE (NEGATIVE); URINE COLOR YELLOW; URINE GLUCOSE (UA) NEGATIVE (NEGATIVE); URINE KETONE NEGATIVE (NEGATIVE); URINE LEUK ESTERASE TRACE (NEGATIVE); URINE NITRITE NEGATIVE (NEGATIVE); URINE PROTEIN NEGATIVE (NEGATIVE); URINE UROBILINOGEN 0.2 mg/dL (0.2-1.0); URINE WBC 33 /uL (0-25.8)
[2022-10-31 17:05] LABS: URINE BARBITURATES NEGATIVE (NEGATIVE)
[2022-10-31 17:06] LABS: COCAINE, UR NEGATIVE (NEGATIVE); METHADONE, UR NEGATIVE (NEGATIVE); PHENCYCLIDINE,URINE NEGATIVE (NEGATIVE); URINE AMPHETAMINES NEGATIVE (NEGATIVE); URINE BENZODIAZEPINES NEGATIVE (NEGATIVE)
[2022-10-31 17:07] LABS: OPIATES, URI NEGATIVE (NEGATIVE)
[2022-10-31 17:45] LABS: BASO % 0.6 % (0-2.0); EOS % 2.1 % (0-4.5); HEMATOCRIT 38.4 % (32.4-45.2); HEMOGLOBIN 12.7 GM/dL (10.7-15.3); LYMPH % 28.7 % (8-40); MEAN CELL VOLUME 90.7 fl (80-96); MEAN PLT VOLUME 9.7 fl (7.5-11.1); MONO % 4.9 % (3.8-10.2); NEUT % 63.7 % (42.8-82.8); PLATELET COUNT 220 10^3/uL (134-434); RBC 4.23 M/mm3 (3.60-5.2); RDW 13.7 % (11.6-15.6); WHITE BLOOD COUNT 11.1 K/mm3 (4.0-10.0)
[2022-10-31 18:04] LABS: CALCIUM 9.3 mg/dL (8.5-10.1)
[2022-10-31 18:05] LABS: ALBUMIN 3.7 g/dl (3.4-5.0); BLOOD UREA NITROGEN 8.8 mg/dL (7-18)
[2022-10-31 18:08] LABS: CREATININE 0.6 mg/dL (0.55-1.3)
[2022-10-31 18:10] LABS: BILIRUBIN,TOTAL 0.3 mg/dL (0.2-1); TOT PROT 7.2 g/dl (6.4-8.2)
[2022-10-31 19:05] LABS: URINE RBC 28.6 /uL (0-23.9)
== END 2022-10-31 19:08 | disposition left against medical advice (07) ==
LOC: JER 13:50
DX: G40.89 Other seizures (principal)
CPT/HCPCS: 36415; 71045-TC-FY; 80053; 80177; 80185; 80307; 81003; 85025; 87086; 99285-25

== ENCOUNTER 2022-12-18 18:18 | Emergency (ER) | payer OTHER ==
[2022-12-18 18:45] VITALS: BP 119/68; PULSE 83; RESP 18; TEMP 98.2; BMI 22.7
== END 2022-12-18 21:14 | disposition home or self-care (01) ==
LOC: JERFT 18:18 → JER 18:18 → JERFT 21:14
DX: Z59.02 Unsheltered homelessness (principal)
CPT/HCPCS: 82962; 99283-25

== ENCOUNTER 2023-01-12 22:42 | Emergency (ER) | payer OTHER ==
[2023-01-12 22:49] VITALS: BP 116/78; RESP 20; TEMP 98; BMI 22.7
[2023-01-13] MEDS ORDERED: DOXYCYCLINE HYCLATE 100 MG CAPSULE PO ONE ×2 (00:30→01:32)
[2023-01-13] MEDS ORDERED: IBUPROFEN 600 MG TABLET (FP) PO ONE ×2 (00:30→01:32)
[2023-01-13 02:04] VITALS: PULSE 78
== END 2023-01-13 02:04 | disposition home or self-care (01) ==
LOC: JER 22:42
DX: G40.89 Other seizures (principal)
CPT/HCPCS: 99283-25

== ENCOUNTER 2023-01-18 22:39 | Emergency (ER) | payer OTHER ==
[2023-01-18 22:49] VITALS: BP 121/82; PULSE 71; RESP 18; TEMP 98.1; BMI 27.3
[2023-01-19] MEDS ORDERED: ACETAMINOPHEN 1000 MG/100 ML BAG IVPB ONE
[2023-01-19] MEDS ORDERED: SODIUM CHLORIDE 0.9% 500 ML INFUS.BAG IV ONE
[2023-01-19] MEDS ORDERED: METOCLOPRAMIDE HCL INJECTION 10 MG/2 ML VIAL IVPB ONE
[2023-01-19] MEDS ORDERED: METOCLOPRAMIDE HCL INJECTION 10 MG/2 ML VIAL ONE (01:05)
[2023-01-19] MEDS ORDERED: ACETAMINOPHEN INJECTION 100 ML IVPB ONE (01:05)
[2023-01-19] MEDS ORDERED: FAMOTIDINE 20 MG/50 ML IVPB 20 MG/50 ML MG IVPB ONE ×2 (01:06)
[2023-01-19 02:08] LABS: ALBUMIN 3.2 g/dl (3.4-5.0); MAGNESIUM 1.9 mg/dL (1.8-2.4)
[2023-01-19 02:11] LABS: CREATININE 0.5 mg/dL (0.55-1.3)
[2023-01-19 02:13] LABS: BILIRUBIN,TOTAL 0.2 mg/dL (0.2-1); TOT PROT 6.6 g/dl (6.4-8.2)
== END 2023-01-19 01:56 | disposition left against medical advice (07) ==
LOC: JER 22:39
DX: M54.50 Low back pain, unspecified (principal)
CPT/HCPCS: 36415; 80053; 82962; 83690; 83735; 99283-25

== ENCOUNTER 2023-02-04 09:08 | Emergency (ER) | payer OTHER ==
[2023-02-04 09:23] VITALS: BP 138/62; PULSE 72; RESP 18; TEMP 98.7; BMI 21.7
[2023-02-04] MEDS ORDERED: PHENYTOIN NA EXTENDED 100 MG CAPSULE (FP) PO ONE (09:51)
[2023-02-04] MEDS ORDERED: levETIRAcetam 500 MG TABLET (FP) PO ONE ×2 (09:51→09:57)
[2023-02-04] MEDS ORDERED: PHENYTOIN NA EXTENDED 100 MG CAPSULE (FP) ONE (09:57)
== END 2023-02-04 10:48 | disposition home or self-care (01) ==
LOC: JER 09:08
DX: G40.909 Epilepsy, unspecified, not intractable, without status epilepticus (principal); Z76.0 Encounter for issue of repeat prescription
CPT/HCPCS: 93005; 93010; 99283-25

== ENCOUNTER 2023-02-08 16:55 | Emergency (ER) | payer OTHER ==
[2023-02-08 17:31] VITALS: BP 141/89; TEMP 98.8; BMI 23.3
[2023-02-08 19:01] LABS: BASO % 0.7 % (0-2.0); EOS % 2.8 % (0-4.5); HEMATOCRIT 36.7 % (32.4-45.2); HEMOGLOBIN 12.5 GM/dL (10.7-15.3); LYMPH % 24.2 % (8-40); MCHC 34.1 g/dl (32.0-36.0); MEAN PLT VOLUME 10.5 fl (7.5-11.1); MONO % 6.2 % (3.8-10.2); NEUT % 66.1 % (42.8-82.8); PLATELET COUNT 190 10^3/uL (134-434); RBC 4.17 M/mm3 (3.60-5.2); WHITE BLOOD COUNT 10.1 K/mm3 (4.0-10.0)
[2023-02-08 19:25] LABS: CHLORIDE 104 mmol/L (98-107); SODIUM 139 mmol/L (136-145)
[2023-02-08 19:29] LABS: CALCIUM 9.1 mg/dL (8.5-10.1); GLUCOSE,RANDOM 107 mg/dL (74-106)
[2023-02-08 19:30] LABS: ALBUMIN 3.6 g/dl (3.4-5.0); ANION GAP 5 MMOL/L (8-16); BLOOD UREA NITROGEN 10.6 mg/dL (7-18); CO2 30 mmol/L (21-32)
[2023-02-08 19:33] LABS: CREATININE 0.4 mg/dL (0.55-1.3); SGOT/AST 15 U/L (15-37); SGPT/ALT 27 U/L (13-61)
[2023-02-08 19:34] LABS: BILIRUBIN,TOTAL 0.7 mg/dL (0.2-1); TOT PROT 6.8 g/dl (6.4-8.2)
[2023-02-08 19:36] LABS: ALK PHOS 141 U/L (45-117)
[2023-02-08 19:59] VITALS: PULSE 65; RESP 16
== END 2023-02-08 20:50 | disposition left against medical advice (07) ==
LOC: JER 16:55
DX: G40.909 Epilepsy, unspecified, not intractable, without status epilepticus (principal)
CPT/HCPCS: 36415; 70450-TC; 71045-TC-FY; 80053; 80164; 80177; 80185; 80307; 82962; 83605; 85025; 93005; 93010; 99283-25

== ENCOUNTER 2023-02-24 22:43 | Emergency (ER) | payer OTHER ==
[2023-02-24 22:49] VITALS: BP 110/73; PULSE 76; RESP 20; TEMP 97.6; BMI 22.7
[2023-02-24] MEDS ORDERED: ALPRAZolam 1 MG TABLET PO PRN (23:19)
== END 2023-02-25 05:25 | disposition home or self-care (01) ==
LOC: JER 22:43
DX: G47.00 Insomnia, unspecified (principal)
CPT/HCPCS: 99282-25

== ENCOUNTER 2023-03-20 18:50 | Emergency (ER) | payer OTHER ==
[2023-03-20 19:01] VITALS: BMI 22.6
[2023-03-20] MEDS ORDERED: ACETAMINOPHEN 1000 MG/100 ML BAG IVPB ONE (21:55)
[2023-03-20 23:24] LABS: BASO % 0.3 % (0-2.0); EOS % 3.2 % (0-4.5); HEMATOCRIT 36.7 % (32.4-45.2); HEMOGLOBIN 12.3 GM/dL (10.7-15.3); LYMPH % 35.8 % (8-40); MCH 30.1 pg (25.7-33.7); MCHC 33.5 g/dl (32.0-36.0); MEAN CELL VOLUME 89.8 fl (80-96); MEAN PLT VOLUME 10.2 fl (7.5-11.1); MONO % 6.7 % (3.8-10.2); PLATELET COUNT 210 10^3/uL (134-434); RBC 4.09 M/mm3 (3.60-5.2); RDW 14.1 % (11.6-15.6); WHITE BLOOD COUNT 11.2 K/mm3 (4.0-10.0)
[2023-03-20] MEDS ORDERED: ACETAMINOPHEN INJECTION 100 ML IVPB ONE (23:31)
[2023-03-20 23:33] LABS: PROTHROMBIN TIME (PATIENT) 11.6 SEC (9.7-13.0)
[2023-03-20 23:35] LABS: ACTIVATED PTT 28.6 SECONDS (25.2-36.5)
[2023-03-20 23:45] LABS: POTASSIUM 4.2 mmol/L (3.5-5.1)
[2023-03-20 23:47] LABS: ALBUMIN 3.4 g/dl (3.4-5.0); BLOOD UREA NITROGEN 13.6 mg/dL (7-18)
[2023-03-20 23:50] LABS: CREATININE 0.6 mg/dL (0.55-1.3)
[2023-03-20 23:52] LABS: TOT PROT 6.6 g/dl (6.4-8.2)
[2023-03-21 00:10] LABS: BILIRUBIN,TOTAL 0.2 mg/dL (0.2-1)
[2023-03-21 02:02] VITALS: BP 114/69; PULSE 67; RESP 20; TEMP 97.8
== END 2023-03-21 05:28 | disposition home or self-care (01) ==
LOC: JER 18:50
DX: R60.0 Localized edema (principal); M79.605 Pain in left leg; M79.604 Pain in right leg; Z20.822 Contact with and (suspected) exposure to COVID-19
CPT/HCPCS: 36415; 80053; 83880; 85025; 85610; 85730; 93005; 93010; 93970-TC; 99285-25; C9803-CS; U0003; U0005

== ENCOUNTER 2023-03-21 18:42 | Emergency (ER) | payer OTHER ==
[2023-03-21 19:36] VITALS: BP 122/80; PULSE 75; RESP 18; TEMP 98.2; BMI 22.4
== END 2023-03-21 20:21 | disposition home or self-care (01) ==
LOC: JER 18:42
DX: G40.909 Epilepsy, unspecified, not intractable, without status epilepticus (principal); R60.0 Localized edema; G47.00 Insomnia, unspecified
CPT/HCPCS: 82962; 99283-25

== ENCOUNTER 2023-04-11 19:12 | Emergency (ER) | payer OTHER ==
[2023-04-11 19:21] VITALS: BP 108/64; PULSE 111; RESP 20; TEMP 98.5; BMI 21.6
[2023-04-11] MEDS ORDERED: BACITRACIN ZINC 15 GM TUBE TOPICAL OINTMENT TP ONE (20:19)
[2023-04-11 21:15] LABS: HEMATOCRIT 36.8 % (32.4-45.2); HEMOGLOBIN 12.5 GM/dL (10.7-15.3); MCH 30.6 pg (25.7-33.7); MEAN PLT VOLUME 9.8 fl (7.5-11.1); PLATELET COUNT 207 10^3/uL (134-434); RBC 4.09 M/mm3 (3.60-5.2); RDW 13.9 % (11.6-15.6); WHITE BLOOD COUNT 10.6 K/mm3 (4.0-10.0)
[2023-04-11 21:43] LABS: POTASSIUM 4.1 mmol/L (3.5-5.1)
[2023-04-11 21:44] LABS: CALCIUM 8.9 mg/dL (8.5-10.1)
[2023-04-11 21:45] LABS: BLOOD UREA NITROGEN 18.8 mg/dL (7-18)
[2023-04-11 21:48] LABS: CREATININE 0.8 mg/dL (0.55-1.3)
[2023-04-11] MEDS ORDERED: BACITRACIN 0.9 GM PACKET ONE (21:49)
[2023-04-11] MEDS ORDERED: SILVER SULFADIAZINE 1% TOP CREAM 400 GM JAR TP SCH (22:15)
== END 2023-04-11 22:20 | disposition home or self-care (01) ==
LOC: JER 19:12
DX: M79.601 Pain in right arm (principal); M79.605 Pain in left leg; R22.43 Localized swelling, mass and lump, lower limb, bilateral; R50.9 Fever, unspecified; G40.909 Epilepsy, unspecified, not intractable, without status epilepticus; I87.2 Venous insufficiency (chronic) (peripheral); S00.03XA Contusion of scalp, initial encounter; T23.202A Burn of second degree of left hand, unspecified site, initial encounter; T20.20XA Burn of second degree of head, face, and neck, unspecified site, initial encounter; T22.252A Burn of second degree of left shoulder, initial encounter; T22.251A Burn of second degree of right shoulder, initial encounter; T24.121A Burn of first degree of right knee, initial encounter; T24.232A Burn of second degree of left lower leg, initial encounter; T24.231A Burn of second degree of right lower leg, initial encounter; X10.0XXA Contact with hot drinks, initial encounter; W22.8XXA Striking against or struck by other objects, initial encounter
CPT/HCPCS: 36415; 70450-TC; 80048; 85027; 99284-25

== ENCOUNTER 2023-04-13 21:37 | Emergency (ER) | payer OTHER ==
[2023-04-13 21:54] VITALS: BP 130/87; PULSE 76; RESP 18; TEMP 97.8; BMI 21.9
[2023-04-13] MEDS ORDERED: ACETAMINOPHEN 500 MG TABLET (FP) PO ONE (23:01)
[2023-04-13] MEDS ORDERED: LIDOCAINE 5% TOPICAL PATCH TP ONE (23:02)
[2023-04-13] MEDS ORDERED: LIDOCAINE 5% TOPICAL PATCH ONE (23:09)
[2023-04-13] MEDS ORDERED: ACETAMINOPHEN 500 MG TABLET (FP) ONE (23:12)
[2023-04-13 23:31] LABS: EPI CELLS >36 /uL (0-25.1); HYALINE CASTS 1 /uL (0-3.1); URINE APPEARANCE CLEAR; URINE BACTERIA 641 /uL (0-1359); URINE BILIRUBIN NEGATIVE (NEGATIVE); URINE COLOR YELLOW; URINE GLUCOSE (UA) NEGATIVE (NEGATIVE); URINE KETONE NEGATIVE (NEGATIVE); URINE LEUK ESTERASE TRACE (NEGATIVE); URINE NITRITE NEGATIVE (NEGATIVE); URINE PROTEIN NEGATIVE (NEGATIVE); URINE RBC 45.7 /uL (0-23.9); URINE UROBILINOGEN 0.2 mg/dL (0.2-1.0); URINE WBC 45 /uL (0-25.8)
[2023-04-14] MEDS ORDERED: KETOROLAC TROMETHAMINE 30 MG/1 ML VIAL IM ONE (00:32)
[2023-04-14] MEDS ORDERED: KETOROLAC TROMETHAMINE 30 MG/1 ML VIAL ONE (00:53)
[2023-04-14] MEDS ORDERED: SODIUM CHLORIDE 0.9% 500 ML INFUS.BAG IV ONE (01:13)
[2023-04-14] MEDS ORDERED: CEPHALEXIN MONOHYDRATE 500 MG CAPSULE (UD) PO ONE (01:15)
[2023-04-14] MEDS ORDERED: CEPHALEXIN MONOHYDRATE 500 MG CAPSULE (UD) ONE (01:28)
[2023-04-14] MEDS ORDERED: LIDOCAINE PATCH REMOVAL MC ONE (12:00)
== END 2023-04-14 01:46 | disposition left against medical advice (07) ==
LOC: JER 21:37
PROC: 3E0233Z Introduction of Anti-inflammatory into Muscle, Percutaneous Approach (ICD-10-PCS; principal; 2023-04-14)
DX: R51.9 Headache, unspecified (principal); M79.10 Myalgia, unspecified site; M79.604 Pain in right leg; M79.605 Pain in left leg; M54.2 Cervicalgia; M54.9 Dorsalgia, unspecified; R30.0 Dysuria; R60.0 Localized edema; Z59.00 Homelessness unspecified
CPT/HCPCS: 81003; 87086; 93970-TC; 99284-25

== ENCOUNTER 2023-06-16 17:17 | Inpatient (IN) | payer OTHER ==
[2023-06-16] MEDS ORDERED: SODIUM CHLORIDE 1,000 ML IV SCH (18:15)
[2023-06-16] MEDS ORDERED: THIAMINE HCL 200 MG/2 ML VIAL IVPB ONE (18:18)
[2023-06-16] MEDS ORDERED: THIAMINE HCL 200 MG/2 ML VIAL ONE (18:26)
[2023-06-16 19:39] LABS: BASO % 0.5 % (0-2.0); EOS % 3.9 % (0-4.5); HEMATOCRIT 36.9 % (32.4-45.2); HEMOGLOBIN 12.6 GM/dL (10.7-15.3); LYMPH % 34.6 % (8-40); MCH 30.5 pg (25.7-33.7); MCHC 34.1 g/dl (32.0-36.0); MEAN CELL VOLUME 89.6 fl (80-96); MEAN PLT VOLUME 10.3 fl (7.5-11.1); MONO % 8.3 % (3.8-10.2); NEUT % 52.7 % (42.8-82.8); PLATELET COUNT 196 10^3/uL (134-434); RBC 4.12 M/mm3 (3.60-5.2); RDW 13.4 % (11.6-15.6); WHITE BLOOD COUNT 9.9 K/mm3 (4.0-10.0)
[2023-06-16 19:44] LABS: CHLORIDE 105 mmol/L (98-107); POTASSIUM 4.4 mmol/L (3.5-5.1); SODIUM 142 mmol/L (136-145)
[2023-06-16 19:47] LABS: ANION GAP 5 MMOL/L (8-16); CO2 33 mmol/L (21-32); MAGNESIUM 1.9 mg/dL (1.8-2.4)
[2023-06-16 19:48] LABS: ALBUMIN 3.3 g/dl (3.4-5.0); BLOOD UREA NITROGEN 15.6 mg/dL (7-18); CALCIUM 9.3 mg/dL (8.5-10.1)
[2023-06-16 19:49] LABS: GLUCOSE,RANDOM 111 mg/dL (74-106)
[2023-06-16 19:50] LABS: CREATININE 0.5 mg/dL (0.55-1.3); INR 0.98 (0.83-1.09); PROTHROMBIN TIME (PATIENT) 11.4 SEC (9.7-13.0); SGOT/AST 10 U/L (15-37); SGPT/ALT 23 U/L (13-61)
[2023-06-16 19:52] LABS: CHOLESTEROL 193 mg/dL (50-200); TOT PROT 6.3 g/dl (6.4-8.2)
[2023-06-16 19:53] LABS: ACTIVATED PTT 25.4 SECONDS (25.2-36.5); BILIRUBIN,TOTAL < 0.1 mg/dL (0.2-1); LDL CHOLESTEROL (ONLY SJRH) 108 mg/dL (5-100)
[2023-06-16 19:54] LABS: ALK PHOS 136 U/L (45-117); HDL CHOLESTEROL 64 mg/dL (40-60)
[2023-06-16] MEDS ORDERED: DOCUSATE SODIUM 100 MG CAPSULE (FP) PO PRN (22:36)
[2023-06-16 22:58] LABS: PHOSPHOROUS 4.5 mg/dL (2.5-4.9)
[2023-06-16 23:03] LABS: N-TERMINAL BNP 10.2 pg/ml (5-125)
[2023-06-16] MEDS ORDERED: ALBUTEROL SO4 2.5/IPRATROPIUM 0.5 INH SOL 3 ML VIAL.NEB. NEB PRN (23:39)
[2023-06-16] MEDS ORDERED: PHENYTOIN NA EXTENDED 100 MG CAPSULE (FP) PO ONE (23:44)
[2023-06-16] MEDS ORDERED: PHENYTOIN NA EXTENDED 100 MG CAPSULE (FP) PO SCH (23:45)
[2023-06-17] MEDS: levETIRAcetam 500 MG TABLET (FP) PO SCH ×2 (00:15→22:58)
[2023-06-17 02:38] VITALS: BMI 22.6
[2023-06-17 08:44] LABS: EPI CELLS >36 /uL (0-25.1); HYALINE CASTS 0 /uL (0-3.1); PH,URINE 6.5 (5.0-8.0); URINE APPEARANCE CLEAR; URINE BACTERIA 696 /uL (0-1359); URINE BILIRUBIN NEGATIVE (NEGATIVE); URINE COLOR YELLOW; URINE GLUCOSE (UA) NEGATIVE (NEGATIVE); URINE KETONE NEGATIVE (NEGATIVE); URINE LEUK ESTERASE TRACE (NEGATIVE); URINE NITRITE NEGATIVE (NEGATIVE); URINE PROTEIN NEGATIVE (NEGATIVE); URINE UROBILINOGEN 0.2 mg/dL (0.2-1.0); URINE WBC 65 /uL (0-25.8)
[2023-06-17 09:49] LABS: URINE RBC 16 /uL (0-23.9)
[2023-06-17 10:16] LABS: BASO % 0.7 % (0-2.0); EOS % 3.1 % (0-4.5); HEMATOCRIT 34.7 % (32.4-45.2); HEMOGLOBIN 11.6 GM/dL (10.7-15.3); LYMPH % 30.7 % (8-40); MCH 30.6 pg (25.7-33.7); MCHC 33.4 g/dl (32.0-36.0); MEAN CELL VOLUME 91.4 fl (80-96); MEAN PLT VOLUME 10.9 fl (7.5-11.1); MONO % 6.1 % (3.8-10.2); NEUT % 59.4 % (42.8-82.8); PLATELET COUNT 192 10^3/uL (134-434); RDW 13.7 % (11.6-15.6); WHITE BLOOD COUNT 9.3 K/mm3 (4.0-10.0)
[2023-06-17] MEDS: MULTIVITAMINS (DAILY MVI) TABLET (FP) PO SCH (10:31)
[2023-06-17] MEDS: PHENYTOIN NA EXTENDED 100 MG CAPSULE (FP) PO SCH ×2 (10:31→22:58)
[2023-06-17 10:33] LABS: POTASSIUM 4.3 mmol/L (3.5-5.1)
[2023-06-17 10:34] LABS: CALCIUM 8.5 mg/dL (8.5-10.1)
[2023-06-17 10:36] LABS: BLOOD UREA NITROGEN 12.4 mg/dL (7-18)
[2023-06-17 10:47] LABS: CREATININE 0.5 mg/dL (0.55-1.3)
[2023-06-18] MEDS: ACETAMINOPHEN 325 MG TABLET (FP) PO PRN ×2 (07:10→14:22)
[2023-06-18] MEDS: MULTIVITAMINS (DAILY MVI) TABLET (FP) PO SCH (09:56)
[2023-06-18] MEDS: PHENYTOIN NA EXTENDED 100 MG CAPSULE (FP) PO SCH ×2 (09:56→22:00)
[2023-06-18] MEDS: ALBUTEROL SO4 2.5/IPRATROPIUM 0.5 INH SOL 3 ML VIAL.NEB. NEB SCH ×3 (11:33→20:29)
[2023-06-18] MEDS: BUDESONIDE/FORMETEROL FUMARATE 160/4.5 mcg INHALER IH SCH ×2 (12:38→22:01)
[2023-06-18] MEDS: levETIRAcetam 500 MG TABLET (FP) PO SCH (22:00)
[2023-06-19] MEDS: ALBUTEROL SO4 2.5/IPRATROPIUM 0.5 INH SOL 3 ML VIAL.NEB. NEB SCH ×2 (08:21→11:36)
[2023-06-19] MEDS: levETIRAcetam 500 MG TABLET (FP) PO SCH (08:47)
[2023-06-19] MEDS: BUDESONIDE/FORMETEROL FUMARATE 160/4.5 mcg INHALER IH SCH (10:27)
[2023-06-19] MEDS: PHENYTOIN NA EXTENDED 100 MG CAPSULE (FP) PO SCH (10:27)
[2023-06-19] MEDS: MULTIVITAMINS (DAILY MVI) TABLET (FP) PO SCH (10:27)
[2023-06-19 14:24] VITALS: BP 101/54; PULSE 76; RESP 18; TEMP 98.2
== END 2023-06-19 15:41 | DRG 111 ==
LOC: JER 17:17 → JERBED 21:18 → J6S 06-17 01:22 → OBSVTOIN 06-18 15:21
PROVIDERS: ADMIT Internal Medicine; ATTEND Family Medicine
DX: R42 Dizziness and giddiness (principal); G93.49 Other encephalopathy; E05.90 Thyrotoxicosis, unspecified without thyrotoxic crisis or storm; E11.9 Type 2 diabetes mellitus without complications; F17.210 Nicotine dependence, cigarettes, uncomplicated; G40.909 Epilepsy, unspecified, not intractable, without status epilepticus; I10 Essential (primary) hypertension; J44.9 Chronic obstructive pulmonary disease, unspecified; R25.1 Tremor, unspecified; R26.2 Difficulty in walking, not elsewhere classified; Z59.00 Homelessness unspecified
CPT/HCPCS: 36415; 70450-TC; 71045-TC-FY; 80048; 80053; 80061; 80177; 80185; 81003; 82550; 82962; 83036; 83735; 83880; 84100; 84439; 84443; 84479; 84484; 85025; 85610; 85730; 86850; 86900; 86901; 93005; 93010; 94640; 97116-GP; 99285-25; G0378

== ENCOUNTER 2023-07-04 14:40 | Emergency (ER) | payer OTHER ==
[2023-07-04 14:54] VITALS: BMI 20.3
[2023-07-04 16:21] LABS: BASO % 0.7 % (0-2.0); EOS % 2.4 % (0-4.5); HEMATOCRIT 38.6 % (32.4-45.2); HEMOGLOBIN 13.1 GM/dL (10.7-15.3); MCH 29.9 pg (25.7-33.7); MCHC 33.9 g/dl (32.0-36.0); MEAN CELL VOLUME 88.2 fl (80-96); MEAN PLT VOLUME 9.8 fl (7.5-11.1); MONO % 5.7 % (3.8-10.2); NEUT % 72.2 % (42.8-82.8); PLATELET COUNT 263 10^3/uL (134-434); RBC 4.38 M/mm3 (3.60-5.2); RDW 13.2 % (11.6-15.6)
[2023-07-04 16:27] LABS: EPI CELLS >36 /uL (0-25.1); HYALINE CASTS 0 /uL (0-3.1); PH,URINE 6.5 (5.0-8.0); URINE APPEARANCE CLEAR; URINE BACTERIA 937 /uL (0-1359); URINE BILIRUBIN NEGATIVE (NEGATIVE); URINE COLOR YELLOW; URINE GLUCOSE (UA) NEGATIVE (NEGATIVE); URINE KETONE NEGATIVE (NEGATIVE); URINE LEUK ESTERASE TRACE (NEGATIVE); URINE NITRITE NEGATIVE (NEGATIVE); URINE PROTEIN NEGATIVE (NEGATIVE); URINE RBC 25 /uL (0-23.9); URINE UROBILINOGEN 0.2 mg/dL (0.2-1.0); URINE WBC 87 /uL (0-25.8)
[2023-07-04 17:03] VITALS: RESP 15
[2023-07-04 17:09] LABS: POTASSIUM 5.4 mmol/L (3.5-5.1)
[2023-07-04 17:16] LABS: ALBUMIN 3.3 g/dl (3.4-5.0); BLOOD UREA NITROGEN 18.5 mg/dL (7-18); MAGNESIUM 1.8 mg/dL (1.8-2.4)
[2023-07-04 17:19] LABS: CREATININE 0.5 mg/dL (0.55-1.3)
[2023-07-04 17:21] LABS: BILIRUBIN,TOTAL 0.3 mg/dL (0.2-1)
[2023-07-04] MEDS ORDERED: levETIRAcetam 500 MG/5 ML INJECTION VIAL IVPB ONE ×2 (17:30→17:46)
[2023-07-04] MEDS ORDERED: PHENYTOIN SODIUM 250 MG/5 ML VIAL IVPB ONE (17:45)
[2023-07-04 23:42] VITALS: BP 96/57; PULSE 56; TEMP 97.9
== END 2023-07-05 03:05 ==
LOC: JER 14:40
PROC: 3E033GC Introduction of Other Therapeutic Substance into Peripheral Vein, Percutaneous Approach (ICD-10-PCS; principal; 2023-07-04)
PROC: 3E033GC Introduction of Other Therapeutic Substance into Peripheral Vein, Percutaneous Approach (ICD-10-PCS; 2023-07-04)
DX: G40.909 Epilepsy, unspecified, not intractable, without status epilepticus (principal)
CPT/HCPCS: 36415; 70450-TC; 80053; 80177; 80185; 81003; 82962; 83735; 84484; 85025; 87086; 93005; 93010; 99285-25

== ENCOUNTER 2023-07-14 15:44 | Emergency (ER) | payer OTHER ==
[2023-07-14 16:08] VITALS: RESP 18; BMI 20.2
[2023-07-14] MEDS ORDERED: levETIRAcetam 500 MG/5 ML INJECTION VIAL IVPB ONE ×2 (17:04→17:27)
[2023-07-14] MEDS ORDERED: PHENYTOIN 100 MG/4 ML U-D CUP PO ONE (17:04)
[2023-07-14] MEDS ORDERED: PHENYTOIN ORAL SUSP 125 MG/5 ML PO ONE (17:30)
[2023-07-14 18:59] LABS: BASO % 0.5 % (0-2.0); EOS % 2.4 % (0-4.5); HEMATOCRIT 41.4 % (32.4-45.2); HEMOGLOBIN 14.2 GM/dL (10.7-15.3); LYMPH % 29.4 % (8-40); MCHC 34.3 g/dl (32.0-36.0); MEAN CELL VOLUME 87.6 fl (80-96); MEAN PLT VOLUME 9.3 fl (7.5-11.1); MONO % 4.9 % (3.8-10.2); NEUT % 62.8 % (42.8-82.8); PLATELET COUNT 230 10^3/uL (134-434); RBC 4.72 M/mm3 (3.60-5.2); RDW 13.4 % (11.6-15.6); WHITE BLOOD COUNT 11.2 K/mm3 (4.0-10.0)
[2023-07-14 19:21] LABS: POTASSIUM 4.3 mmol/L (3.5-5.1)
[2023-07-14 19:23] LABS: BLOOD UREA NITROGEN 10.3 mg/dL (7-18); CALCIUM 9.2 mg/dL (8.5-10.1); MAGNESIUM 1.8 mg/dL (1.8-2.4)
[2023-07-14 19:24] LABS: ALBUMIN 3.9 g/dl (3.4-5.0)
[2023-07-14 19:27] LABS: CREATININE 0.6 mg/dL (0.55-1.3)
[2023-07-14 19:28] LABS: BILIRUBIN,TOTAL 0.2 mg/dL (0.2-1); TOT PROT 7.4 g/dl (6.4-8.2)
[2023-07-14 20:15] LABS: EPI CELLS >36 /uL (0-25.1); HYALINE CASTS 1 /uL (0-3.1); URINE APPEARANCE CLEAR; URINE BACTERIA 2009 /uL (0-1359); URINE BILIRUBIN NEGATIVE (NEGATIVE); URINE COLOR YELLOW; URINE GLUCOSE (UA) NEGATIVE (NEGATIVE); URINE KETONE NEGATIVE (NEGATIVE); URINE LEUK ESTERASE 1+ (NEGATIVE); URINE NITRITE NEGATIVE (NEGATIVE); URINE PROTEIN NEGATIVE (NEGATIVE); URINE RBC 48 /uL (0-23.9); URINE WBC 133 /uL (0-25.8)
[2023-07-14] MEDS ORDERED: CEPHALEXIN 250 MG/5 ML ORAL SUSPENSION PO ONE (20:51)
[2023-07-15 00:59] VITALS: BP 124/82; PULSE 52; TEMP 97
[2023-07-15] MEDS ORDERED: NICOTINE 7 MG/24 HOURS TOPICAL PATCH TD ONE (20:22)
== END 2023-07-15 02:02 ==
LOC: JER 15:44
PROC: 3E033NZ Introduction of Analgesics, Hypnotics, Sedatives into Peripheral Vein, Percutaneous Approach (ICD-10-PCS; principal; 2023-07-14)
DX: S00.03XA Contusion of scalp, initial encounter (principal); G40.909 Epilepsy, unspecified, not intractable, without status epilepticus; N39.0 Urinary tract infection, site not specified; W22.8XXA Striking against or struck by other objects, initial encounter; Z20.822 Contact with and (suspected) exposure to COVID-19
CPT/HCPCS: 0241U-QW; 36415; 70450-TC; 80053; 80177; 80185; 81003; 83735; 84439; 84443; 85025; 87086; 93005; 93010; 99285-25

== ENCOUNTER 2023-09-04 01:23 | Emergency (ER) | payer OTHER ==
[2023-09-04 01:32] VITALS: BP 104/62; PULSE 81; RESP 16; TEMP 97.9; BMI 31.3
== END 2023-09-04 03:00 | disposition left against medical advice (07) ==
LOC: JER 01:23
DX: R10.9 Unspecified abdominal pain (principal); Z53.21 Procedure and treatment not carried out due to patient leaving prior to being seen by health care provider; R42 Dizziness and giddiness
CPT/HCPCS: 74019-TC-FY; 99283-25

== ENCOUNTER 2024-04-16 14:15 | Emergency (ER) | payer OTHER ==
[2024-04-16 14:42] VITALS: BP 121/75; PULSE 73; RESP 18; TEMP 98; BMI 20.3
[2024-04-16] MEDS: ACETAMINOPHEN 500 MG TABLET (FP) PO ONE (15:51)
[2024-04-16] MEDS ORDERED: ACETAMINOPHEN 325 MG TABLET (FP) ONE (15:52)
[2024-04-16] MEDS: PENICILLIN V POTASSIUM 500 MG TABLET PO ONE (17:16)
== END 2024-04-16 20:09 | disposition home or self-care (01) ==
LOC: JER 14:15
DX: K08.89 Other specified disorders of teeth and supporting structures (principal); T74.91XD Unspecified adult maltreatment, confirmed, subsequent encounter; K02.9 Dental caries, unspecified; K05.10 Chronic gingivitis, plaque induced
CPT/HCPCS: 99283-25

== ENCOUNTER 2024-10-16 01:24 | Emergency (ER) | payer OTHER ==
[2024-10-16 01:30] VITALS: BP 126/89; PULSE 116; RESP 20; TEMP 98.1; BMI 21.7
[2024-10-16] MEDS ORDERED: ACETAMINOPHEN 325 MG TABLET (FP) ONE (02:32)
[2024-10-16] MEDS: ACETAMINOPHEN 325 MG TABLET (FP) PO ONE (02:35)
== END 2024-10-16 03:29 | disposition home or self-care (01) ==
LOC: JER 01:24
DX: K13.79 Other lesions of oral mucosa (principal); K08.89 Other specified disorders of teeth and supporting structures; R07.0 Pain in throat
CPT/HCPCS: 99284-25

== ENCOUNTER 2024-10-17 18:09 | Emergency (ER) | payer OTHER ==
[2024-10-17 18:53] VITALS: BMI 21.7
[2024-10-17] MEDS ORDERED: ACETAMINOPHEN INJECTION 100 ML ONE (20:04)
[2024-10-17] MEDS: ACETAMINOPHEN 1000 MG/100 ML BAG IVPB ONE (20:49)
[2024-10-17 20:54] LABS: EOS % 2.8 % (0-4.5); HEMATOCRIT 34.8 % (32.4-45.2); HEMOGLOBIN 11.3 GM/dL (10.7-15.3); LYMPH % 28.8 % (8-40); MCH 30.1 pg (25.7-33.7); MCHC 32.5 g/dl (32.0-36.0); MEAN CELL VOLUME 92.6 fl (80-96); MONO % 6.3 % (3.8-10.2); NEUT % 61.1 % (42.8-82.8); RBC 3.75 M/mm3 (3.60-5.2); RDW 14.1 % (11.6-15.6); WHITE BLOOD COUNT 12.5 K/mm3 (4.0-10.0)
[2024-10-17 20:59] LABS: POTASSIUM 3.6 mmol/L (3.5-5.1)
[2024-10-17 21:01] LABS: ALBUMIN 3.3 g/dl (3.4-5.0); BLOOD UREA NITROGEN 8.6 mg/dL (7-18); CALCIUM 8.6 mg/dL (8.5-10.1)
[2024-10-17 21:02] LABS: MAGNESIUM 1.9 mg/dL (1.8-2.4)
[2024-10-17 21:04] LABS: CREATININE 0.4 mg/dL (0.55-1.3); MEAN PLT VOLUME 9.9 fl (7.5-11.1); PLATELET COUNT 210 10^3/uL (134-434)
[2024-10-17 21:06] LABS: BILIRUBIN,TOTAL 0.4 mg/dL (0.2-1); TOT PROT 6.4 g/dl (6.4-8.2)
[2024-10-18 01:28] VITALS: RESP 18
[2024-10-18] MEDS: IBUPROFEN 600 MG TABLET (FP) PO ONE (04:18)
[2024-10-18 06:29] VITALS: BP 122/86; PULSE 73; TEMP 98.3
== END 2024-10-18 07:02 | disposition home or self-care (01) ==
LOC: JER 18:09
PROC: 3E033NZ Introduction of Analgesics, Hypnotics, Sedatives into Peripheral Vein, Percutaneous Approach (ICD-10-PCS; principal; 2024-10-17)
DX: G40.909 Epilepsy, unspecified, not intractable, without status epilepticus (principal); M25.512 Pain in left shoulder; M25.571 Pain in right ankle and joints of right foot; R51.9 Headache, unspecified; R53.83 Other fatigue
CPT/HCPCS: 36415; 70450-TC; 71045-TC-FY; 72125-TC; 72170-TC-FY; 73030-TC-LT-FY; 73610-TC-RT-FY; 73630-TC-RT-FY; 80053; 80177; 80185; 82962; 83605; 83735; 84484; 85025; 93005; 93010; 99285-25; J0131